=== PATIENT | male | born 2000 | race Caucasian/White ===

== ENCOUNTER 2023-07-17 08:08 | Emergency (ER) | payer OTHER ==
[2023-07-17 08:21] VITALS: BP 147/96; O2SAT 99
--- NOTE | 2023-07-17 08:28 | ED Physician Documentation ---
PD HPI UPPER EXT INJURY - Stated complaint Stated Complaint: L SHLDR INJURY - Chief complaint Chief Complaint: Ext Problem - History obtained from History obtained from: Patient - History of Present Illness Location: Left, Shoulder Type of injury: Other (Patient was working out: Doing skull pressures, bicep curls, push-ups. Villanueva a pop. Pain localizes to anterior and posterior of his left shoulder. Does not feel like it dislocated. Has had prior shoulder pain which resolved with PT and conservative measures.) Where injury occurred: Home Timing - onset: Today Timing - details: Abrupt onset Pain level max: 4 Pain level now: 4 Improved by: Rest Worsened by: Moving PD PAST MEDICAL HISTORY - Past Medical History Past Medical History: Yes Musculoskeletal: Other (prior left shoulder pain tx with PT) - Past Surgical History Past Surgical History: No - Present Medications Home Medications: Ambulatory Orders Medication Instructions Recorded Confirmed Meloxicam 15 mg PO DAILY 07/17/23 07/17/23 - Allergies Allergies/Adverse Reactions: Allergies Allergy/AdvReac Type Severity Reaction Status Date / Time No Known Drug Allergies Allergy Verified 07/17/23 08:19 - Social History Does the pt smoke?: No Smoking Status: Never smoker Does the pt drink ETOH?: Yes Does the pt have substance abuse?: No - Immunizations Immunizations are current?: Yes - POLST Patient has POLST: No PD ED PE NORMAL - General General: Alert and oriented X 3 - HEENT HEENT: Atraumatic - Cardiac Cardiac: RRR, No murmur - Respiratory Respiratory: No respiratory distress - Extremities Extremities: Other (No deformity. He can reach across with the left shoulder and touch the contralateral shoulder. Sensation intact throughout. He has tenderness to palpation along the distal end of his left clavicle to the AC joint. He also has pain along the superior aspect of his scapula. Full range of motion e) Results - Vitals Vitals: Vital Signs - 24 hr 07/17/23 08:15 Temperature 36.2 C L Heart Rate 93 Respiratory 20 Rate Blood Pressure 147/96 H O2 Saturation 99 Oxygen O2 Source Room air PD Medical Decision Making - ED course Complexity details: reviewed results, re-evaluated patient, considered differential ED course: Patient presents with left shoulder pain localizing to his left AC joint with some posterior pain as well. Does not appear to be dislocated. Sensation and motor and sensory are intact distally. X-rays reveal:no acute bony injury. will tx w sling for short term, he has an orthopedist, will see them in f/u Departure - Departure Clinical Impression: Left shoulder strain Condition: Good Instructions: Shoulder Probs, Repetitive Motion Injury Shoulder Discharge Date/Time: 07/17/23 09:54
--- NOTE | 2023-07-17 09:22 | XRAY Report ---
PROCEDURE: Shoulder 2+V LT INDICATIONS: left shoulder pain post workout. TECHNIQUE: 3 views of the shoulder were acquired. COMPARISON: None. FINDINGS: Bones: No fractures or dislocations. No suspicious bony lesions. Visualized ribs appear intact. Soft tissues: No suspicious soft tissue calcifications. The visualized lungs are within normal limi ts. IMPRESSION: No acute fracture. No osseous lesion. If symptoms and/or clinical suspicion for patholog y continue, further assessment with repeat plain films, or advanced imaging (e.g., CT, MRI, or bone s can) is recommended for further assessment. Reviewed by: Les Mccallum MD on 07/17/2023 9:21 AM [facility] Approved by: Les Mccallum MD on 07/17/2023 9:21 AM [facility] Station ID: [id number]
== END 2023-07-17 09:54 | disposition home or self-care (01) ==
LOC: ED 08:08
DX: S46.912A Strain of unspecified muscle, fascia and tendon at shoulder and upper arm level, left arm, initial encounter (principal); X58.XXXA Exposure to other specified factors, initial encounter; Y93.B2 Activity, push-ups, pull-ups, sit-ups; Y92.009 Unspecified place in unspecified non-institutional (private) residence as the place of occurrence of the external cause
CPT/HCPCS: 99283

== ENCOUNTER 2023-08-04 07:46 | Outpatient (CLI) | payer OTHER ==
--- NOTE | 2023-08-04 14:57 | MRI Report ---
PROCEDURE: Shoulder LT WO INDICATIONS: L SHOULDER PAIN TECHNIQUE: Noncontrast oblique coronal T2 fast spin echo with fat saturation, oblique sagittal T1 spin echo and T2 fast spin echo with fat saturation, axial T1 spin echo and T2 fast spin echo with fat saturation t hrough the shoulder. COMPARISON: X-ray left shoulder, 07/17/2023. FINDINGS: Image quality: Excellent. Rotator cuff: There is moderate tendinosis of the subscapularis tendons and mild supraspinous and inf raspinatus tendinosis. No high-grade tendon tear. No rotator cuff muscle atrophy on sagittal images. Bones and bursae: No bone marrow contusions or fractures. Mild acromioclavicular joint degeneration. The acromion demonstrates conventional anatomy, without an os acromiale. No pathologic subacromial /subdeltoid bursal fluid is present. Capsule and soft tissues: A small posterior labral tear in the present (series 4 image 17. In the ab sence of intra-articular contrast, the glenohumeral ligaments appear intact. The long head of the bi ceps tendon demonstrates normal location and morphology. The rotator interval appears normal, withou t fibrosis. The coracohumeral ligament is normal in thickness. Several borderline sized axillary lymph nodes are noted, likely reactive. IMPRESSION: 1. Moderate subscapularis tendinosis, and mild supraspinous and infraspinous tendinosis. No high-grad e tendon tear. No rotator cuff muscle atrophy. 2. Mild acromioclavicular arthrosis. 3. Question small posterior labral tear. Reviewed by: Saúl Norton MD on 08/04/2023 1:55 PM [facility] Approved by: Saúl Norton MD on 08/04/2023 1:55 PM [facility] Station ID: [id number]
== END 2023-08-04 07:47 | disposition home or self-care (01) ==
LOC: DI 07:46
DX: M67.814 Other specified disorders of tendon, left shoulder (principal); M19.012 Primary osteoarthritis, left shoulder

== ENCOUNTER 2023-08-31 18:48 | Emergency (ER) | payer OTHER ==
[2023-08-31 19:11] VITALS: O2SAT 100
--- NOTE | 2023-08-31 19:41 | ED Physician Documentation ---
History of Present Illness - Stated complaint Stated Complaint: GI/CHILLS/NAUSEA - Chief complaint Chief Complaint: General - Additonal information Additional information: Okay 43-year-old male presents emergency department for abdominal pain nausea and concerns of dark bowel movements. Patient reports that he had left knee surgery on Monday today started experiencing mild dizziness, nausea chills and abdominal cramping. Patient reports dark stools originally to the triage nurse but myself he says that it is cadet he is noticing a lot of joe blood. Patient reports that history of hemorrhoids but feels like this is more amount of blood that he is used to seeing.He endorses and mid abdominal cramping sensation and GI discomfort. No fevers that patient is aware of. PD PAST MEDICAL HISTORY - Past Medical History Past Medical History: Yes Musculoskeletal: Other - Past Surgical History Past Surgical History: Yes Ortho: Other - Present Medications Home Medications: Ambulatory Orders Medication Instructions Recorded Confirmed Meloxicam 15 mg PO DAILY 07/17/23 08/31/23 - Allergies Allergies/Adverse Reactions: Allergies Allergy/AdvReac Type Severity Reaction Status Date / Time No Known Drug Allergies Allergy Verified 08/31/23 20:22 - Social History Does the pt smoke?: No Smoking Status: Never smoker Does the pt drink ETOH?: Yes Does the pt have substance abuse?: No - Immunizations Immunizations are current?: Yes - POLST Patient has POLST: No PD ED PE NORMAL - Vitals Vital signs reviewed: Yes - General General: Alert and oriented X 3, No acute distress, Well developed/nourished - Cardiac Cardiac: RRR, No gallop - Respiratory Respiratory: No respiratory distress, Clear bilaterally - Abdomen Abdomen: Normal bowel sounds, Soft, Non tender, Non distended, No organomegaly - Rectal Rectal: Pt declined - Derm Derm: Normal color, Warm and dry, No rash - Extremities Extremities: Other (Left knee incision from previous surgery wound edges appear to be well-approximated no signs or symptoms of infection no erythema purulent drainage.) - Psych Psych: Normal mood, Normal affect Results - Vitals Vitals: Vital Signs - 24 hr 08/31/23 08/31/23 18:52 20:48 Temperature 37.1 C Heart Rate 110 H 108 H Respiratory 20 16 Rate Blood Pressure 160/100 H 120/78 O2 Saturation 100 100 Oxygen O2 Source Room air - Labs Labs: Laboratory Tests 08/31/23 08/31/23 08/31/23 19:52 19:52 20:10 WBC 8.6 RBC 5.50 Hgb 16.0 Hct 48.2 MCV 87.6 MCH 29.1 MCHC 33.2 RDW 12.4 Plt Count 177 MPV 9.2 Neut # (Auto) 7.1 H Lymph # (Auto) 1.1 L Parmer # (Auto) 0.3 Eos # (Auto) 0.0 Baso # (Auto) 0.0 Absolute Nucleated RBC 0.00 Nucleated RBC % 0.0 PT 12.0 INR 1.1 Sodium 137 Potassium 4.2 Chloride 104 Carbon Dioxide 27 Anion Gap 6.0 BUN 20 Creatinine 1.1 Estimated GFR (MDRD) 82 L Glucose 116 H Calcium 9.8 Total Bilirubin 0.7 AST 29 ALT 70 H Alkaline Phosphatase 66 Total Protein 7.2 Albumin 4.6 Globulin 2.6 Albumin/Globulin Ratio 1.8 PD Medical Decision Making - ED course ED course: 23-year-old male presents emergency department for concerns of GI bleed. Labs were collected and hemoglobin is 16.0 hematocrit 48.2. Electrolytes are within normal limits he has no leukocytosis ALT slightly elevated at 70, normal PT/INR. Patient is not on any blood thinners. His vitals remained quite stable no hypotension he is slightly tachycardic heart rate 108 but patient reports that he is feeling very anxious. He denies any fevers or chills no obvious signs or symptoms of infection. Patient was any meal to have a bowel movement here in the emergency department he did show me a picture of toilet paper that did have joe blood on it with brown stool. I offered to do a rectal exam for the patient for further evaluation of his rectal bleeding but patient reports now that he knows that his labs are unremarkable he would like to go home and recover at home and skip the rectal exam. Patient does report that he has a history of hemorrhoids he does not think he has been constipated but said that he would like to go home and do some Preparation H cream maybe some topical zinc barrier cream to his rectum and see how he is feeling once he goes home. He denies any abdominal pain at this point in time I did offer to do a CT abdomen but patient said that he overall is feeling quite reassured after having his labs done. At this point in time patient is given strict return precautions I believe that he is safe for discharge she is told to follow-up with primary care provider for further evaluation all questions answered. Departure - Departure Disposition: 01 Home, Self Care Clinical Impression: Acute hemorrhoid Condition: Good Instructions: ED Hemorrhoids Comments: Thank you for trusting us with your care. We have completed labs and I am not seeing any anemia or elevation of your white blood cell count. You can apply zinc barrier cream to rectum if this is a possible ruptured hemorrhoid. Please come back to the emergency department if you change your mind and would like to have a rectal exam and complete imaging of your abdomen. Keep an eye out for worsening abdominal pain, fevers and chills, severe rectal pain, severe rectal bleeding. Follow-up with your primary care provider about today's ER visit. Wishing you a speedy recovery. Forms: PCP List Discharge Date/Time: 08/31/23 20:49
[2023-08-31 20:01] LABS: BASOPHILS % (AUTO) 0.3 %; EOSINOPHILS % (AUTO) 0.5 %; HCT - HEMATOCRIT 48.2 % (42.0-52.0); LYMPHOCYTES # (AUTO) 1.1 10^3/uL (1.5-3.5); LYMPHOCYTES % (AUTO) 13.1 %; MEAN CORPUSCULAR HEMOGLOBIN 29.1 pg (27.0-31.0); MEAN CORPUSCULAR HGB CONC 33.2 g/dL (32.0-36.0); MEAN CORPUSCULAR VOLUME 87.6 fL (80.0-94.0); MEAN PLATELET VOLUME 9.2 fL (7.4-11.4); MONOCYTES # (AUTO) 0.3 10^3/uL (0.0-1.0); MONOCYTES % (AUTO) 3.8 %; NEUTROPHILS # (AUTO) 7.1 10^3/uL (1.5-6.6); PLT - PLATELET COUNT 177 10^3/uL (130-450); RED CELL DISTRIBUTION WIDTH 12.4 % (12.0-15.0); WHITE BLOOD COUNT 8.6 x10^3/uL (4.8-10.8)
[2023-08-31 20:19] LABS: ALBUMIN 4.6 g/dL (3.2-5.5); ALBUMIN/GLOBULIN RATIO 1.8 (1.0-2.2); BILIRUBIN,TOTAL 0.7 mg/dL (0.2-1.0); CALCIUM 9.8 mg/dL (8.5-10.3); CREATININE 1.1 mg/dL (0.6-1.3); POTASSIUM 4.2 mmol/L (3.5-4.5); TOTAL PROTEIN 7.2 g/dL (6.4-8.9)
[2023-08-31 20:24] LABS: INR 1.1 (0.8-1.2)
[2023-08-31] MEDS ORDERED: iohexoL-300 100 ML VIAL ONE (20:29)
[2023-08-31] MEDS: SODIUM CHLORIDE 0.9% 1,000 ML IV ONE (20:31)
[2023-08-31] MEDS: ONDANSETRON 4 MG/2 ML VIAL IVP STA (20:31)
[2023-08-31 20:51] VITALS: BP 120/78
== END 2023-08-31 20:49 | disposition home or self-care (01) ==
LOC: ED 18:48
DX: K64.9 Unspecified hemorrhoids (principal)
CPT/HCPCS: 36415; 80053; 85025; 85610; 99283; 99284